=== PATIENT | female | born 1980 | race American Indian/Alaskan Native ===

== ENCOUNTER 2017-01-13 00:22 | Inpatient (IN) | payer OTHER ==
[2017-01-13] MEDS ORDERED: CARDIZEM IV ONE (00:32)
[2017-01-13] MEDS ORDERED: CARDIZEM/D5W 100MG/100ML 0 MG/0 ML BAG IV ONE (00:34)
[2017-01-13] MEDS ORDERED: CARDIZEM ONE (00:34)
--- NOTE | 2017-01-13 00:38 | Emergency Department Report ---
HPI - General Chief Complaint: Chest Pain Time Seen by Provider: 01/13/17 00:32 - HPI HPI: Room 1 The patient is a 36-year-old female presenting with a chief complaint of palpitations chest pain and shortness of breath. The patient states her symptoms began this evening when she awakened feeling "uncomfortable" which include chest pain and shortness of breath with palpitations. Patient has a history of atrial fibrillation. The patient currently complains of chest pain in addition to palpitations. Patient does admit to a slight cough today. Location: Chest Duration: [see above] Quality: Patient's, pain Severity: Moderate Modifying factors: [see above] Context: [see above] Mode of transportation: [not driving] ED Past Medical Hx - Past Medical History Previous Medical History?: Yes Hx Hypertension: Yes (2007) Hx Diabetes: Yes (pill control) Additional medical history: Atrial fibrillation - Surgical History Past Surgical History?: Yes Hx Cholecystectomy: Yes (1997) Additional Surgical History: , tonsillectomy, cardiac cath 02/2015 - Family History Family history: no significant - Social History Smoking Status: Never Smoker Substance Use Type: None - Medications Home Medications: Home Medications Medication Instructions Recorded Confirmed Last Taken Type Amiodarone [Cordarone 200 MG TAB] 200 mg PO DAILY 02/27/15 01/13/17 01/13/17 History Metoprolol [Lopressor TAB] 50 mg PO BID 02/27/15 01/13/17 01/13/17 History Valsartan [Diovan] 320 mg PO QDAY 02/27/15 01/13/17 01/13/17 History Apixaban [Eliquis] 5 mg PO QDAY 01/13/17 01/13/17 01/13/17 History NIFEdipine [Nifedipine ER] 60 mg PO QDAY 01/13/17 01/13/17 01/13/17 History ED Review of Systems ROS: Stated complaint: TACHYCARDIA Other details as noted in HPI Comment: All other systems reviewed and negative Constitutional: denies: chills, fever Eyes: denies: eye pain, eye discharge, vision change ENT: denies: ear pain, throat pain Respiratory: shortness of breath Cardiovascular: chest pain, palpitations Endocrine: no symptoms reported Gastrointestinal: denies: abdominal pain, nausea, diarrhea Genitourinary: denies: urgency, dysuria, discharge Musculoskeletal: denies: back pain, joint swelling, arthralgia Skin: denies: rash, lesions Neurological: denies: headache, weakness, paresthesias Psychiatric: denies: anxiety, depression Hematological/Lymphatic: denies: easy bleeding, easy bruising Physical Exam - Physical Exam Vital Signs: Vital Signs 01/13/17 01/13/17 00:27 00:32 Temperature 99.2 F Pulse Rate 179 H Respiratory 2 L Rate Blood Pressure 131/96 O2 Sat by Pulse 100 Oximetry Physical Exam: GENERAL: The patient is well-developed well-nourished female lying on stretcher appearing to be in mild discomfort HEENT: Normocephalic. Atraumatic. Extraocular motions are intact. Patient has moist mucous membranes. NECK: Supple. Trachea midline CHEST/LUNGS: Clear to auscultation. There is no respiratory distress noted. HEART/CARDIOVASCULAR: Irregularly irregular, tachycardic. There is no gallop rub or murmur. ABDOMEN: Abdomen is soft, nontender. Patient has normal bowel sounds. There is no abdominal distention. SKIN: There is no rash. There is no diaphoresis. and gait. MUSCULOSKELETAL: There is no evidence of acute injury. ED Course Vital Signs 01/13/17 01/13/17 00:27 00:32 Temperature 99.2 F Pulse Rate 179 H Respiratory 2 L Rate Blood Pressure 131/96 O2 Sat by Pulse 100 Oximetry ED Medical Decision Making - Lab Data Result diagrams: 01/13/17 00:38 01/13/17 00:38 Laboratory Tests 01/13/17 01/13/17 01/13/17 00:38 00:38 00:38 WBC 17.5 H RBC 5.19 H Hgb 8.9 L Hct 30.3 MCV 58 L MCH 17 L MCHC 29 L RDW 21.4 H Plt Count 486 H Lymph % (Auto) 16.0 [place] % (Auto) 6.4 Eos % (Auto) 1.4 Baso % (Auto) 0.6 Lymph # 2.8 [place] # 1.1 H Eos # 0.2 Baso # 0.1 Seg Neutrophils % 75.6 H Seg Neutrophils # 13.2 H PT 14.5 INR 1.07 APTT 28.1 Sodium 138 Potassium 4.0 Chloride 101.1 Carbon Dioxide 21 L Anion Gap 20 BUN 12 Creatinine 0.8 Estimated GFR > 60 BUN/Creatinine Ratio 15 Glucose 351 H Calcium 8.5 Troponin T < 0.010 - EKG Data -: EKG Interpreted by Me Rate: tachycardia (179 bpm) - EKG Data When compared to previous EKG there are: previous EKG unavailable Interpretation: other (atrial fibrillation with rapid ventricular response) - Radiology Data Radiology results: report reviewed (chest x-ray), image reviewed (chest x-ray) interpreted by me: Chest x-ray-right lower lobe infiltrate, left lower lobe infiltrate Chest x-ray (read by radiologist) sees-cardiomegaly with mild central pulmonary vascular congestion and bilateral infiltrates. These may be on the basis of congestive heart failure/pulmonary edema versus pneumonia. Clinical correlation is recommended. - Differential Diagnosis A. fib with RVR, ACS, pericarditis, GERD Critical care attestation.: If time is entered above; I have spent that time in minutes in the direct care of this critically ill patient, excluding procedure time. ED Disposition Clinical Impression: Atrial fibrillation with rapid ventricular response, Pneumonia, Hypoxia Disposition: DC-09 OP ADMIT IP TO THIS HOSP Is pt being admited?: Yes Does the pt Need Aspirin: Yes Condition: Fair Instructions: Bacterial Pneumonia (ED) Time of Disposition: 02:45 (hospitalist paged)
[2017-01-13 01:07] LABS: Basophils % (Auto) 0.6 % (0.0-1.8); Eosinophils % (Auto) 1.4 % (0.0-4.3); Mean Corpuscular HGB Conc 29 % (30-34); Platelet Count 486 K/mm3 (140-440); Red Blood Count 5.19 M/mm3 (3.65-5.03); White Blood Count 17.5 K/mm3 (4.5-11.0)
[2017-01-13 01:09] LABS: Hematocrit 30.3 % (30.3-42.9); Hemoglobin 8.9 gm/dl (10.1-14.3); Mean Corpuscular Hemoglobin 17 pg (28-32); Mean Corpuscular Volume 58 fl (79-97); Red Cell Distribution Width 21.4 % (13.2-15.2)
[2017-01-13 01:27] LABS: Anion Gap 20 mmol/L; BUN/Creatinine Ratio 15; Blood Urea Nitrogen 12 mg/dL (7-17); Calcium 8.5 mg/dL (8.4-10.2); Carbon Dioxide 21 mmol/L (22-30); Chloride 101.1 mmol/L (98-107); Glucose 351 mg/dL (65-100); Sodium 138 mmol/L (137-145)
[2017-01-13 01:41] LABS: INR 1.07 (0.87-1.13)
[2017-01-13 01:42] LABS: Partial Thromboplastin Time 28.1 Sec. (24.2-36.6)
--- NOTE | 2017-01-13 02:31 | XRay Report ---
FINAL REPORT EXAM: XR CHEST 1V AP HISTORY: Chest pain. TECHNIQUE: A single frontal portable radiograph of the chest was obtained. No prior studies are available for comparison. FINDINGS: The heart is mildly enlarged. There is mild central pulmonary vascular congestion. There are bilateral perihilar and infrahilar infiltrates, which may be on the basis of congestive heart failure/pulmonary edema versus pneumonia. There is suggestion of a small left pleural effusion. There is no pneumothorax. No significant osseous abnormalities are identified. IMPRESSION: Cardiomegaly, with mild central pulmonary vascular congestion and bilateral infiltrates. These may be on the basis of congestive heart failure/pulmonary edema versus pneumonia. Clinical correlation is recommended.
[2017-01-13] MEDS ORDERED: ZOSYN/NS 4.5GM/100ML 4.5 GM/100 ML VIAL IV ONE (02:39)
[2017-01-13] MEDS ORDERED: ASPIRIN PO ONE (02:45)
[2017-01-13] MEDS ORDERED: MORPHINE IV PRN (06:31)
[2017-01-13] MEDS ORDERED: DULCOLAX PR PRN (06:31)
[2017-01-13] MEDS ORDERED: MILK OF MAGNESIA PO PRN (06:31)
[2017-01-13] MEDS ORDERED: ZOFRAN IV PRN (06:31)
--- NOTE | 2017-01-13 06:41 | History and Physical Report ---
History of Present Illness Date of examination: 01/13/17 History of present illness: 36-year-old woman with a history of hypertension, diabetes, A. fib because emergency room with complaints of chest pain located in the epigastric area which started yesterday. She stated it felt as if someone was sitting on her chest, intensity 9 of 10, constant, no radiation, relief with narcotics given in the emergency room. She complained of shortness of breath, palpitation, no nausea vomiting or diaphoresis, no cough no fever no chills. In the emergency room she was found to have A. fib in the 170s, aborted with Cardizem Review Of Systems: Constitutional: no weight loss Ears, eyes, nose, mouth and throat: no nasal congestion, no nasal discharge, no sinus pressure, blurry vision, diplopia Neck: No neck pain or rigidity. Cardiovascular: no orthopnea, palpitations Respiratory: No cough Gastrointestinal: abdominal pain, hematochezia Genitourinary : no dysuria, frequency , hematuria Musculoskeletal: no muscle ache Integumentary: no rash, no pruritis Neurological: no parathesias, focal weakness Endocrine: no cold or heat intolerance, no polyuria or polydipsia Hematologic/Lymphatic: no easy bruising, no easy bleeding, no gland swelling Allergic/Immunologic: no urticaria, no angioedema. PAST MEDICAL HISTORY:hypertension, diabetes, A. fib PAST SURGICAL HISTORY: , tonsillectomy FAMILY HISTORY: Hypertension, diabetes SOCIAL HISTORY: Denies alcohol, tobacco, drugs Medications and Allergies Allergies Allergy/AdvReac Type Severity Reaction Status Date / Time No Known Allergies Allergy Unverified 02/27/15 07:29 Home Medications Medication Instructions Recorded Confirmed Last Taken Type Amiodarone [Cordarone 200 MG TAB] 200 mg PO DAILY 02/27/15 01/13/17 01/13/17 History Metoprolol [Lopressor TAB] 50 mg PO BID 02/27/15 01/13/17 01/13/17 History Valsartan [Diovan] 320 mg PO QDAY 02/27/15 01/13/17 01/13/17 History NIFEdipine [Nifedipine ER] 60 mg PO QDAY 01/13/17 01/13/17 01/13/17 History Active Meds: Active Medications Acetaminophen (Tylenol) 650 mg PO Q4H PRN PRN Reason: Pain MILD(1-3)/Fever >100.5/GONZALES Amiodarone HCl (Cordarone) 200 mg PO DAILY CAROLE Apixaban (Eliquis) 5 mg PO QDAY CAROLE PRN Reason: Protocol Bisacodyl (Dulcolax) 10 mg NM QDAY PRN PRN Reason: Constipation unrelieved by MOM Levofloxacin/Dextrose (Levaquin 750mg/150ml) 750 mg in 150 mls @ 100 mls/hr IV Q24HR CAROLE PRN Reason: Protocol Magnesium Hydroxide (Milk Of Magnesia) 30 ml PO Q4H PRN PRN Reason: Constipation Metoprolol Tartrate (Lopressor) 50 mg PO BID [facility] Miscellaneous Medication (Valsartan [Diovan]) 320 mg PO QDAY CAROLE Morphine Sulfate (Morphine) 2 mg IV Q4H PRN PRN Reason: Pain, Moderate (4-6) Ondansetron HCl (Zofran) 4 mg IV Q8H PRN PRN Reason: N/V unrelieved by Reglan Exam - Physical Exam Narrative exam: Gen. appearance: Patient lying in bed in no acute distress HEENT: Normocephalic/atraumatic, pupils equal round reactive to light, extra alkaline movement intact, no scleral icterus, no JVD or thyromegaly or nodule, neck is supple, mucous membrane moist, no erythema or exudate Heart: S1-S2, IRregular rate and rhythm Lungs: Clear to auscultation bilateral breathing comfortable Abdomen: Positive bowel sounds, nontender, nondistended, no organomegaly Extremities: No edema, cyanosis, clubbing Neuro:: Oriented 3 , cranial nerves II-12 intact, speech, motor intact Skin: No rash, nodules, warm dry - Constitutional Vitals: Temp Pulse Resp BP Pulse Ox 99.2 F 99 H 27 H 142/87 98 01/13/17 00:32 01/13/17 05:00 01/13/17 05:00 01/13/17 05:00 01/13/17 05:00 Results - Labs CBC & Chem 7: 01/14/17 04:43 01/14/17 04:43 Labs: Abnormal lab results 01/13/17 01/13/17 01/13/17 Range/Units 00:38 00:38 00:38 WBC 17.5 H (4.5-11.0) K/mm3 RBC 5.19 H (3.65-5.03) M/mm3 Hgb 8.9 L (10.1-14.3) gm/dl MCV 58 L (79-97) fl MCH 17 L (28-32) pg MCHC 29 L (30-34) % RDW 21.4 H (13.2-15.2) % Plt Count 486 H (140-440) K/mm3 [place] # 1.1 H (0.0-0.8) K/mm3 Seg Neutrophils % 75.6 H (40.0-70.0) % Seg Neutrophils # 13.2 H (1.8-7.7) K/mm3 Carbon Dioxide 21 L (22-30) mmol/L Glucose 351 H (65-100) mg/dL NT-Pro-B Natriuret Pep 573.2 H (0-450) pg/mL - Imaging and Cardiology EKG: image reviewed Chest x-ray: image reviewed Assessment and Plan Assessment A. fib with RVR Chest pain CHF most likely secondary to #1 Possible pneumonia, no symptoms per patient Hypertension Diabetes Plan Admit to medicine Check cardiac enzymes, obtain stress test, consult cardiology Start IV Lasix, IV Levaquin Check fingersticks and initiate insulin sliding scale, follow cultures DVT prophylaxis with eliquis
[2017-01-13 07:53] LABS: Creatine Kinase 50 units/L (30-135)
[2017-01-13 07:54] LABS: Creatine Kinase MB < 1.0 ng/mL (0.0-4.0)
[2017-01-13] MEDS: CORDARONE PO SCH (12:30)
[2017-01-13] MEDS: LEVAQUIN 750MG/150ML 750 MG/150 ML BAG IV SCH (12:30)
[2017-01-13] MEDS: LOPRESSOR PO SCH ×2 (12:30→21:29)
[2017-01-13] MEDS: DIOVAN PO SCH (12:30)
--- NOTE | 2017-01-13 13:31 | Consultation ---
History of Present Illness Consult date: 01/13/17 Consult reason: atrial fibrillation, chest pain History of present illness: This is a 36yr old woman with a history of Rheumatic Mitral stenosis and valvular paroxysmal Atrial fibrillation. 2 years ago she had a right and left cardiac cath that showed elevated right and left filling pressures with a moderate pulmonary hypertension. There was mild mitral stenosis but normal coronary arteries. Ejection fraction of 45%. Patient reports she is follow by [facility]. She is on eliquis for oral anticoagulation. EMS was called for complaints of chest pain, shortness of breath and palpitations. Found to be in atrial fibrillation with a rapid ventricular response which, by report, was treated with adenosine in the field. She was brought to this hospital and treated with intravenous cardizem in the the ED. Patient remains in atrial fibrillation but rate is now controled. Cardiology consultation was requested for further management. Medications and Allergies Allergies Allergy/AdvReac Type Severity Reaction Status Date / Time No Known Allergies Allergy Unverified 02/27/15 07:29 Home Medications Medication Instructions Recorded Confirmed Last Taken Type Amiodarone [Cordarone 200 MG TAB] 200 mg PO DAILY 02/27/15 01/13/17 01/13/17 History Metoprolol [Lopressor TAB] 50 mg PO BID 02/27/15 01/13/17 01/13/17 History Valsartan [Diovan] 320 mg PO QDAY 02/27/15 01/13/17 01/13/17 History Apixaban [Eliquis] 5 mg PO QDAY 01/13/17 01/13/17 01/13/17 History NIFEdipine [Nifedipine ER] 60 mg PO QDAY 01/13/17 01/13/17 01/13/17 History Active Meds: Active Medications Acetaminophen (Tylenol) 650 mg PO Q4H PRN PRN Reason: Pain MILD(1-3)/Fever >100.5/GONZALES Amiodarone HCl (Cordarone) 200 mg PO DAILY CAROLE Apixaban (Eliquis) 5 mg PO QDAY CAROLE PRN Reason: Protocol Bisacodyl (Dulcolax) 10 mg IA QDAY PRN PRN Reason: Constipation unrelieved by MOM Furosemide (Lasix) 40 mg IV DAILY CAROLE Levofloxacin/Dextrose (Levaquin 750mg/150ml) 750 mg in 150 mls @ 100 mls/hr IV Q24HR CAROLE PRN Reason: Protocol Magnesium Hydroxide (Milk Of Magnesia) 30 ml PO Q4H PRN PRN Reason: Constipation Metoprolol Tartrate (Lopressor) 50 mg PO BID [facility] Morphine Sulfate (Morphine) 2 mg IV Q4H PRN PRN Reason: Pain, Moderate (4-6) Ondansetron HCl (Zofran) 4 mg IV Q8H PRN PRN Reason: N/V unrelieved by Reglan Valsartan (Diovan) 320 mg PO QDAY [facility] Physical Examination Vital Signs Pulse Resp BP Pulse Ox 179 H 20 131/96 94 01/13/17 00:27 01/13/17 00:27 01/13/17 00:27 01/13/17 00:27 General appearance: no acute distress, obese HEENT: Positive: PERRL Neck: Positive: trachea midline Cardiac: Positive: irregularly irregular Results 01/13/17 00:38 01/13/17 00:38 Cardiac Enzymes 01/13/17 Range/Units 07:13 CK-MB (CK-2) < 1.0 (0.0-4.0) ng/mL Assessment and Plan Valvular Paroxysmal Afib Rheumatic Mitral Valve disease R\L cardiac cath 2015: 1. elevated R\L filling pressures 2. moderate pulmonary hypertension 3. mild mitral stenosis 4. normal coronaries, EF 45% Diabetes mellitus Obesity
[2017-01-13 13:48] LABS: Creatine Kinase 55 units/L (30-135)
[2017-01-13 13:53] LABS: Creatine Kinase MB < 1.0 ng/mL (0.0-4.0)
[2017-01-13] MEDS: LASIX IV SCH (14:05)
[2017-01-13] MEDS: ELIQUIS PO SCH (14:07)
--- NOTE | 2017-01-13 15:58 | Event Note ---
Date: 01/13/17 Patient is 36 yo presented with chest pain, afib. I have seen and examined her.
[2017-01-13] MEDS: TYLENOL PO PRN (21:28)
[2017-01-14 05:31] LABS: Basophils % (Auto) 0.7 % (0.0-1.8); Eosinophils % (Auto) 1.1 % (0.0-4.3); Hematocrit 25.9 % (30.3-42.9); Hemoglobin 7.8 gm/dl (10.1-14.3); Mean Corpuscular HGB Conc 30 % (30-34); Platelet Count 358 K/mm3 (140-440); Red Blood Count 4.52 M/mm3 (3.65-5.03); White Blood Count 13.3 K/mm3 (4.5-11.0)
[2017-01-14 05:33] LABS: Mean Corpuscular Volume 57 fl (79-97)
[2017-01-14 05:34] LABS: Mean Corpuscular Hemoglobin 17 pg (28-32); Red Cell Distribution Width 21.4 % (13.2-15.2)
[2017-01-14 05:42] LABS: Anion Gap 16 mmol/L; BUN/Creatinine Ratio 13; Blood Urea Nitrogen 10 mg/dL (7-17); Calcium 8.1 mg/dL (8.4-10.2); Carbon Dioxide 25 mmol/L (22-30); Chloride 101.4 mmol/L (98-107); Glucose 145 mg/dL (65-100); Potassium 3.6 mmol/L (3.6-5.0); Sodium 139 mmol/L (137-145)
[2017-01-14] MEDS: DIOVAN PO SCH (10:26)
[2017-01-14] MEDS: LEVAQUIN 750MG/150ML 750 MG/150 ML BAG IV SCH (10:27)
[2017-01-14] MEDS: LASIX IV SCH (10:27)
[2017-01-14] MEDS: LOPRESSOR PO SCH ×2 (10:27→21:40)
[2017-01-14] MEDS: CORDARONE PO SCH (10:27)
--- NOTE | 2017-01-14 11:12 | Progress Note ---
Assessment and Plan Valvular Paroxysmal Afib Eliquis discontinued (newer oral anticoagulants are contraindicated) initiated on warfarin; target INR of 2.0-3.0. Rheumatic Mitral Valve disease R\L cardiac cath 2015: 1. elevated R\L filling pressures 2. moderate pulmonary hypertension 3. mild to moderate mitral stenosis 4. normal coronaries, EF 45% Diabetes mellitus Obesity Echocardiogram this admission reveals transmitral pressure gradient of 10, consistent with unchanged, mild to moderate mitral stenosis. Continue current medical therpay for atial fibrillation.target INR of 2.0-3.0. As an outpatient, the patient will continue her follow-up with [facility] , and if indicated in future she will have further intervention for her mitral stenosis. Subjective Date of service: 01/14/17 Interval history: Patient denies chest pain, shortness of breath and palpitations. Reverted to sinus rhythm on telemetry. Objective Vital Signs Temp Pulse Pulse Resp BP Pulse Ox 01/14/17 10:36 94 01/14/17 04:18 99.8 F H 99 H 20 125/68 92 01/14/17 00:00 99.6 F 103 H 20 132/88 94 01/13/17 22:00 93 H 17 99 01/13/17 21:29 94 H 147/83 01/13/17 21:28 16 01/13/17 20:41 99.5 F 93 H 22 147/89 93 01/13/17 17:29 99.3 F 103 H 18 149/80 95 01/13/17 14:40 97 01/13/17 12:30 98 H 132/75 01/13/17 11:59 98.6 F 89 18 145/98 97 - Physical Examination General: No Apparent Distress HEENT: Positive: PERRL Neck: Positive: trachea midline Cardiac: Positive: Reg Rate and Rhythm - Labs and Meds Cardiac Enzymes 01/13/17 Range/Units 13:15 CK-MB (CK-2) < 1.0 (0.0-4.0) ng/mL CBC 01/14/17 Range/Units 04:43 WBC 13.3 H (4.5-11.0) K/mm3 RBC 4.52 (3.65-5.03) M/mm3 Hgb 7.8 L (10.1-14.3) gm/dl Hct 25.9 L (30.3-42.9) % Plt Count 358 (140-440) K/mm3 Lymph # 2.0 (1.2-5.4) K/mm3 [place] # 1.4 H (0.0-0.8) K/mm3 Eos # 0.2 (0.0-0.4) K/mm3 Baso # 0.1 (0.0-0.1) K/mm3 Comprehensive Metabolic Panel 01/14/17 Range/Units 04:43 Sodium 139 (137-145) mmol/L Potassium 3.6 (3.6-5.0) mmol/L Chloride 101.4 (98-107) mmol/L Carbon Dioxide 25 (22-30) mmol/L BUN 10 (7-17) mg/dL Creatinine 0.8 (0.7-1.2) mg/dL Glucose 145 H (65-100) mg/dL Calcium 8.1 L (8.4-10.2) mg/dL - Imaging and Cardiology EKG: image reviewed
[2017-01-14] MEDS: LEVAQUIN PO SCH (13:39)
--- NOTE | 2017-01-14 14:18 | Discharge Summary ---
Providers - Providers Date of Admission: 01/13/17 06:31 Date of discharge: 01/14/17 Attending physician: FLORY MANUEL Primary care physician: SURAJ CORONA MD Hospitalization Condition: Fair Disposition: DC-01 TO HOME OR SELFCARE - Discharge Diagnoses (1) Atrial fibrillation with rapid ventricular response Status: Acute (2) Mitral stenosis Status: Acute Qualifiers: Cardiac valve disease etiology: C Core Measure Documentation - Palliative Care Palliative Care/ Comfort Measures: Not Applicable - Core Measures Any of the following diagnoses?: none Exam - Constitutional Vitals: Temp Pulse Resp BP Pulse Ox 99.4 F 116 H 22 169/97 94 01/14/17 08:34 01/14/17 10:00 01/14/17 08:34 01/14/17 08:34 01/14/17 10:36 Plan Activity: advance as tolerated Diet: low fat, low cholesterol, low salt Additional Instructions: 1.Follow up with PCP in 1 week. 2.Follow up with Cardiology in 1 week. 3.Check INR on Tuesday01/17/17 at office of cardiology or PCP. 4.To discontinue Lovenox when INR>2 Follow up with: PRIMARY CAREMD [Primary Care Provider] - 3-5 Days Forms: Warfarin Discharge Instruction
--- NOTE | 2017-01-14 15:18 | XRay Report ---
Single view chest: Compared to 01/13/17. History: Infiltrate. Findings: Cardiomegaly. Trachea midline. Pulmonary venous congestion bilaterally being more pronounced in the lower lobes. CP angle is faintly visualized and appear unremarkable. Impression: Probable early CHF.
--- NOTE | 2017-01-14 15:36 | Progress Note ---
Assessment and Plan - Patient Problems (1) Atrial fibrillation with rapid ventricular response Status: Acute (2) Mitral stenosis Status: Acute Qualifiers: Cardiac valve disease etiology: C Hospitalist Physical - Constitutional Vitals: Temp Pulse Resp BP Pulse Ox 99.4 F 116 H 22 169/97 94 01/14/17 08:34 01/14/17 10:00 01/14/17 08:34 01/14/17 08:34 01/14/17 10:36 General appearance: Present: no acute distress, obese Results - Labs CBC & Chem 7: 01/15/17 05:47 01/15/17 05:47 Labs: Laboratory Last Values WBC 13.3 K/mm3 (4.5-11.0) H 01/14/17 04:43 RBC 4.52 M/mm3 (3.65-5.03) 01/14/17 04:43 Hgb 7.8 gm/dl (10.1-14.3) L 01/14/17 04:43 Hct 25.9 % (30.3-42.9) L 01/14/17 04:43 MCV 57 fl (79-97) L 01/14/17 04:43 MCH 17 pg (28-32) L 01/14/17 04:43 MCHC 30 % (30-34) 01/14/17 04:43 RDW 21.4 % (13.2-15.2) H 01/14/17 04:43 Plt Count 358 K/mm3 (140-440) 01/14/17 04:43 Lymph % (Auto) 14.8 % (13.4-35.0) 01/14/17 04:43 [place] % (Auto) 10.7 % (0.0-7.3) H 01/14/17 04:43 Eos % (Auto) 1.1 % (0.0-4.3) 01/14/17 04:43 Baso % (Auto) 0.7 % (0.0-1.8) 01/14/17 04:43 Lymph # 2.0 K/mm3 (1.2-5.4) 01/14/17 04:43 [place] # 1.4 K/mm3 (0.0-0.8) H 01/14/17 04:43 Eos # 0.2 K/mm3 (0.0-0.4) 01/14/17 04:43 Baso # 0.1 K/mm3 (0.0-0.1) 01/14/17 04:43 Seg Neutrophils % 72.7 % (40.0-70.0) H 01/14/17 04:43 Seg Neutrophils # 9.7 K/mm3 (1.8-7.7) H 01/14/17 04:43 PT 14.5 Sec. (12.2-14.9) 01/13/17 00:38 INR 1.07 (0.87-1.13) 01/13/17 00:38 APTT 28.1 Sec. (24.2-36.6) 01/13/17 00:38 Sodium 139 mmol/L (137-145) 01/14/17 04:43 Potassium 3.6 mmol/L (3.6-5.0) 01/14/17 04:43 Chloride 101.4 mmol/L (98-107) 01/14/17 04:43 Carbon Dioxide 25 mmol/L (22-30) 01/14/17 04:43 Anion Gap 16 mmol/L 01/14/17 04:43 BUN 10 mg/dL (7-17) 01/14/17 04:43 Creatinine 0.8 mg/dL (0.7-1.2) 01/14/17 04:43 Estimated GFR > 60 ml/min 01/14/17 04:43 BUN/Creatinine Ratio 13 % 01/14/17 04:43 Glucose 145 mg/dL (65-100) H 01/14/17 04:43 POC Glucose 273 (70-105) H 01/14/17 13:09 Calcium 8.1 mg/dL (8.4-10.2) L 01/14/17 04:43 Total Creatine Kinase 55 units/L (30-135) 01/13/17 13:15 CK-MB (CK-2) < 1.0 ng/mL (0.0-4.0) 01/13/17 13:15 CK-MB (CK-2) Rel Index 1.8 (0-4) 01/13/17 13:15 Troponin T < 0.010 ng/mL (0.00-0.029) 01/13/17 13:15 NT-Pro-B Natriuret Pep 573.2 pg/mL (0-450) H 01/13/17 00:38
[2017-01-14] MEDS: COUMADIN PO SCH (17:50)
[2017-01-14] MEDS: ELIQUIS PO SCH (17:51)
[2017-01-14] MEDS ORDERED: LASIX IV SCH (18:00)
[2017-01-14] MEDS: LASIX PO SCH (18:58)
[2017-01-14] MEDS: TYLENOL PO PRN (20:07)
[2017-01-15] MEDS: LASIX PO SCH (05:55)
[2017-01-15 06:36] LABS: Hematocrit 24.6 % (30.3-42.9); Hemoglobin 7.4 gm/dl (10.1-14.3); Mean Corpuscular HGB Conc 30 % (30-34); Mean Corpuscular Hemoglobin 17 pg (28-32); Mean Corpuscular Volume 58 fl (79-97); Platelet Count 340 K/mm3 (140-440); Red Blood Count 4.26 M/mm3 (3.65-5.03); Red Cell Distribution Width 21.2 % (13.2-15.2); White Blood Count 11.8 K/mm3 (4.5-11.0)
[2017-01-15 06:41] LABS: INR 1.1 (0.87-1.13)
[2017-01-15 07:00] LABS: BUN/Creatinine Ratio 14; Blood Urea Nitrogen 11 mg/dL (7-17); Calcium 8.4 mg/dL (8.4-10.2); Carbon Dioxide 24 mmol/L (22-30); Glucose 190 mg/dL (65-100)
[2017-01-15 07:01] LABS: Anion Gap 18 mmol/L; Chloride 102.6 mmol/L (98-107); Sodium 141 mmol/L (137-145)
[2017-01-15] MEDS: DIOVAN PO SCH (10:38)
[2017-01-15] MEDS: LOPRESSOR PO SCH (10:38)
[2017-01-15] MEDS: CORDARONE PO SCH (10:38)
--- NOTE | 2017-01-15 12:14 | Progress Note ---
Assessment and Plan - Patient Problems (1) Atrial fibrillation Current Visit: Yes Status: Acute Qualifiers: Atrial fibrillation type: A Plan to address problem: Patient has valvular atrial fibrillation and recommended anticoagulation regimen is Coumadin for target INR of 2.0-3.0. She is stable for cardiac discharge, and can be managed with Lovenox bridge therapy until INR is therapeutic. (2) Mitral stenosis Current Visit: Yes Status: Acute Qualifiers: Cardiac valve disease etiology: C Plan to address problem: Patient has moderate mitral stenosis, transmitral gradient is 10. On discharge , she will follow-up with her primary manager of creative services at [place]. Subjective Date of service: 01/15/17 Interval history: Patient looks and feels comfortable, in no acute distress. She has a history of moderate mitral stenosis, dilated left atrium, and paroxysmal atrial fibrillation. She presented here with alternative oral anticoagulation (Eliquis ), which we have switched to Coumadin for her diagnosis of valvular atrial fibrillation. On telemetry today, she has a stable normal sinus rhythm. Objective Vital Signs Temp Pulse Resp Resp BP Pulse Ox 01/15/17 10:00 98 01/15/17 05:12 98.4 F 74 20 139/75 97 01/14/17 23:39 98.3 F 77 20 135/60 96 01/14/17 22:00 98 01/14/17 21:40 86 146/85 01/14/17 21:26 20 01/14/17 21:07 20 01/14/17 20:44 89 01/14/17 20:35 100.2 F H 86 20 146/85 89 01/14/17 20:07 20 01/14/17 19:51 20 96 01/14/17 16:49 84 90 01/14/17 16:48 98.0 F 82 20 150/84 92 01/14/17 15:00 116 H - Physical Examination General: Appears Well, No Apparent Distress HEENT: Positive: PERRL Neck: Positive: trachea midline Cardiac: Positive: Reg Rate and Rhythm Lungs: Positive: Decreased Breath Sounds Neuro: Positive: Grossly Intact Abdomen: Positive: Soft Skin: Positive: Clear Extremities: Absent: edema - Labs and Meds Coagulation 01/15/17 Range/Units 05:47 PT 14.8 (12.2-14.9) Sec. INR 1.10 (0.87-1.13) CBC 01/15/17 Range/Units 05:47 WBC 11.8 H (4.5-11.0) K/mm3 RBC 4.26 (3.65-5.03) M/mm3 Hgb 7.4 L (10.1-14.3) gm/dl Hct 24.6 L (30.3-42.9) % Plt Count 340 (140-440) K/mm3 Comprehensive Metabolic Panel 01/15/17 Range/Units 05:47 Carbon Dioxide 24 (22-30) mmol/L BUN 11 (7-17) mg/dL Creatinine 0.8 (0.7-1.2) mg/dL Glucose 190 H (65-100) mg/dL Calcium 8.4 (8.4-10.2) mg/dL - Imaging and Cardiology EKG: image reviewed
[2017-01-15] MEDS: LEVAQUIN PO SCH (12:32)
--- NOTE | 2017-01-15 13:53 | Discharge Summary ---
Providers - Providers Date of Admission: 01/13/17 06:31 Date of discharge: 01/15/17 Attending physician: FLORY MANUEL Primary care physician: SURAJ CORONA MD Hospitalization Condition: Fair Disposition: DC-01 TO HOME OR SELFCARE - Discharge Diagnoses (1) Atrial fibrillation with rapid ventricular response Status: Acute (2) Mitral stenosis Status: Acute Qualifiers: Cardiac valve disease etiology: C (3) Pneumonia Status: Acute Qualifiers: Pneumonia type: P Aspiration pneumonia type: A Laterality: L Lung location: L (4) Acute diastolic CHF (congestive heart failure) Status: Acute Core Measure Documentation - Palliative Care Palliative Care/ Comfort Measures: Not Applicable - Core Measures Any of the following diagnoses?: heart failure - Heart Failure Discharge Requirements BRII/ARB for LVSD if EF <40%: Not Applicable Beta justina at discharge: Yes Exam - Constitutional Vitals: Temp Pulse Resp BP Pulse Ox 98.4 F 74 20 139/75 98 01/15/17 05:12 01/15/17 05:12 01/15/17 05:12 01/15/17 05:12 01/15/17 10:00 Plan Activity: advance as tolerated Diet: low fat, low cholesterol, low salt, diabetic Additional Instructions: 1.Follow up with PCP in 1 week. 2.Follow up with cardiology in 3-5 days. 3.Check INR on Tuesday01/17/17 at Office of cardiology Follow up with: PRIMARY CAREMD [Primary Care Provider] - 3-5 Days Forms: Warfarin Discharge Instruction Prescriptions: Enoxaparin [Lovenox] 150 mg SQ QDAY #14 syringe Furosemide [Lasix TAB] 40 mg PO QDAY #30 tablet Levofloxacin [Levaquin TAB] 750 mg PO Q24H #5 tablet Warfarin [Coumadin] 5 mg PO DAILY@1700 #30 tablet
[2017-01-15 14:37] VITALS: BP 141/69
[2017-01-15] MEDS: COUMADIN PO SCH (17:22)
== END 2017-01-15 17:32 | disposition home or self-care (01) | DRG 291 ==
LOC: ED 00:22 → 4A 06:31
PROVIDERS: ADMIT Internal Medicine; ATTEND Internal Medicine
DX: I11.0 Hypertensive heart disease with heart failure (principal); J18.9 Pneumonia, unspecified organism; Z68.42 Body mass index [BMI] 45.0-49.9, adult; I50.31 Acute diastolic (congestive) heart failure; I48.91 Unspecified atrial fibrillation; E66.9 Obesity, unspecified; R09.02 Hypoxemia; I05.0 Rheumatic mitral stenosis; E11.9 Type 2 diabetes mellitus without complications; Z90.49 Acquired absence of other specified parts of digestive tract; Z79.899 Other long term (current) drug therapy; Z82.49 Family history of ischemic heart disease and other diseases of the circulatory system; Z83.3 Family history of diabetes mellitus
CPT/HCPCS: 36415; 71010; 80048; 82270; 82550; 82553; 82962; 83036; 83880; 84484; 85025; 85027; 85610; 85730; 87040; 93005; 93010; 93306; 94760; 96365; 96375; 99285; J0153; J1815; J1940; J1956; J2543